=== PATIENT | female | born 1985 | race Caucasian/White ===

== ENCOUNTER 2017-02-12 20:46 | Emergency (ER) | payer MEDICAID ==
[2017-02-13 03:52] VITALS: BP 97/65
== END 2017-02-13 03:52 | disposition home or self-care (01) ==
LOC: ED 20:46
DX: N83.201 Unspecified ovarian cyst, right side (principal)

== ENCOUNTER 2017-04-12 15:35 | Emergency (ER) | payer MEDICAID ==
[2017-04-12 18:48] VITALS: BP 114/70
== END 2017-04-12 18:48 | disposition home or self-care (01) ==
LOC: ED 15:35
DX: T20.27XA Burn of second degree of neck, initial encounter (principal); T22.20XA Burn of second degree of shoulder and upper limb, except wrist and hand, unspecified site, initial encounter; T31.0 Burns involving less than 10% of body surface; X10.2XXA Contact with fats and cooking oils, initial encounter; Y93.G3 Activity, cooking and baking; Y92.89 Other specified places as the place of occurrence of the external cause; Y99.8 Other external cause status
CPT/HCPCS: J3010; J7030

== ENCOUNTER 2019-05-06 07:38 | Emergency (ER) | payer MEDICAID ==
[~2019-05-06] VITALS: Ht 170.2 cm; Wt 73.0 kg
[2019-05-06 07:46] VITALS: Ht 170.2 cm; Wt 73.0 kg
[2019-05-06 08:46] VITALS: BP 114/67
== END 2019-05-06 08:46 | disposition home or self-care (01) ==
LOC: ED 07:38
DX: J11.1 Influenza due to unidentified influenza virus with other respiratory manifestations (principal); R07.89 Other chest pain
CPT/HCPCS: J1885